=== PATIENT | female | born 1975 | race Hispanic/Latino ===

== ENCOUNTER 2016-11-18 08:15 | Outpatient (CLI) | payer MEDICAID ==
--- NOTE | 2016-11-18 10:19 | Magnetic Resonance Report ---
MRI BRAIN WITH/WITHOUT CONTRAST: History: Multiple sclerosis. Technique: Multiple T1 and T2 weighted images were obtained in multiple planes. Axial diffusion and gradient imaging was performed. Post contrast T1 images in two planes were obtained following IV gadolinium. Findings: The brain parenchyma signal intensity and its varela-white interface are normal on all sequences. No abnormal parenchymal signal. No diffusion restriction, hemorrhage, mass effect or extra-axial fluid collection. Ventricular size is normal and symmetric. The basal cisterns are clear. The brainstem and cerebellar hemispheres are within normal limits. The fourth ventricle is midline. The paranasal sinuses and mastoid air cells are well aerated. Normal flow voids are identified in the appropriate vessels at the grand traverse of [place]. No abnormal enhancement is identified following IV gadolinium. Impression: 1. Unremarkable MRI brain with and without contrast.
--- NOTE | 2016-11-18 11:14 | Magnetic Resonance Report ---
MR CERVICAL SPINE WITH AND WITHOUT CONTRAST HISTORY: Neck pain, radiculopathy, multiple sclerosis. TECHNIQUE: Multisequence, multiplanar MRI before and after IV Gadolinium. FINDINGS: The cervical cord is normal size and signal intensity throughout. No abnormal intramedullary signal or enhancement. Normal height and alignment of the vertebral bodies. Normal bone marrow signal. There is mild diffuse disc desiccation. Facet joints are unremarkable. C2-3: No abnormality. C3-4: No abnormality. C4-5: No abnormality. C5-6: There is moderate circumferential spurring and bilateral uncovertebral spurring. Bilateral neural foraminal narrowing is estimated at 50%. No herniation or central canal stenosis. C6-7: No significant abnormality. C7-T1: No abnormality. No abnormal enhancement is identified following IV Gadolinium. IMPRESSION: Moderate cervical disc disease at C5-6 with at least 50% bilateral neural foraminal narrowing.
== END 2016-11-18 08:16 | disposition home or self-care (01) ==
LOC: MRI 08:15
PROVIDERS: ATTEND Psychiatry & Neurology Neurology
DX: G35 Multiple sclerosis (principal); M54.17 Radiculopathy, lumbosacral region; M50.322 Other cervical disc degeneration at C5-C6 level
CPT/HCPCS: 70553; 72156; A9577